=== PATIENT | male | born 1990 | race Caucasian/White ===

== ENCOUNTER 2018-12-19 16:50 | Emergency (ER) | payer MEDICAID ==
--- NOTE | 2018-12-19 17:10 | ED Physician Chart ---
ED Chief Complaint/HPI - Patient Information Date Seen:: 12/19/18 Time Seen:: 17:00 Chief Complaint:: found street intoxicated History of Present Illness:: chronic Allergies:: Allergies Allergy/AdvReac Type Severity Reaction Status Date / Time Penicillins [PCN] Allergy Verified 11/07/18 11:44 Historian:: Patient, EMS Review:: Nurse's Note Reviewed, EMS run form Reviewed ED Review of Systems - Review of Systems General/Constitutional: Fever, No fever (unreliable) ED Past Medical History - Past Medical History Past Medical History: Other (known etoh sp stab) Family Medical History - Family Member Mother History Unknown: Yes ED Physical Exam - Physical Examination General/Constitutional: No distress, Non-toxic appearing Head: Atraumatic Eyes: Lids, conjuctiva normal Skin: Nl inspection ENMT: External ears, nose nl Neck: Nontender Respiratory: Nl effort/Exclusion Cardio Vascular: RRR GI: No tenderness/rebounding/guarding Extremities: No tenderness or effusion Neuro/Psych: Alert/oriented (slurred intoxicated speech) ED Assessment - Assessment General Assessment: intoxicated ED Septic Shock - . Is Septic Shock (SBP<90, OR Lactate>4 mmol\L) present?: No ED Reassessment (Disposition) - Patient Disposition Discharge/Transfer:: Home Condition at Disposition:: Stable, Improved (stop drinking vitamin with folate and thiamin)
[2018-12-19 18:11] LABS: % BASOPHILS 0.4 % (0.0-2.0); % EOSINOPHILS 0.2 % (0.0-5.0); % LYMPHOCYTES 18.4 % (20.0-50.0); % MONOCYTES 2.5 % (2.0-10.0); % NEUTROPHILS 78.5 % (40.0-80.0); HEMATOCRIT 42.6 % (41.0-60); HEMOGLOBIN 13.9 gm/dL (12-16); LYMPHOCYTE ABSOLUTE 1.3 Th/cmm (1.5-3.0); MEAN CELL VOLUME 87.3 fl (80-99); MEAN CORPUSCULAR HEMOGLOBIN 28.5 pg (26.0-30.0); MEAN CORPUSCULAR HGB CONC 32.6 pg (28.0-36.0); MEAN PLATELET VOLUME 7.3 fl; MONOCYTE ABSOLUTE 0.2 Th/cmm (0.3-1.0); NEUTROPHILE ABSOLUTE 5.4 Th/cmm (1.8-8.0); PLATELET COUNT 300 Th/cmm (150-400); RED BLOOD COUNT 4.88 Mil/cmm (4.30-5.70); RED CELL DISTRIBUTION WIDTH 13.9 % (11.5-20.0); WHITE BLOOD COUNT 6.9 Th/cmm (4.8-10.8)
[2018-12-19 18:24] LABS: ANION GAP 17.1 (7.0-16.0); BUN - UREA NITROGEN 7 mg/dL (7-25); CALCIUM SERUM 9.1 mg/dL (8.6-10.3); CARBON DIOXIDE 23.5 mEq/L (21.0-31.0); CHLORIDE 102 mEq/L (98-107); CREATININE - SERUM 0.8 mg/dL (0.7-1.3); GFR AFRICAN-AMERICAN > 60.0 ml/min (>90); GFR NON AFRICAN-AMERICAN > 60.0 ml/min; GLUCOSE 142 mg/dL (70-105); MAGNESIUM 2.2 mg/dL (1.9-2.7); POTASSIUM SERUM 3.6 mEq/L (3.5-5.1); SODIUM SERUM 139 mEq/L (136-145)
[2018-12-19] MEDS ORDERED: Thiamine 100 mg/mL 2mL Vial IM STA (18:37)
[2018-12-19] MEDS ORDERED: Thiamine 100 mg/mL 2mL Vial ONE (18:46)
== END 2018-12-19 19:28 | disposition home or self-care (01) ==
LOC: ER 16:50
DX: F10.129 Alcohol abuse with intoxication, unspecified (principal); Z88.0 Allergy status to penicillin
CPT/HCPCS: 99283; 96372; 36415; 85025; 83735; 80048; J3411; Z7502